=== PATIENT | male | born 1960 | race Caucasian/White ===

== ENCOUNTER → 2021-01-13 | Day surgery (SDC) | payer OTHER ==
[~2021-01-13] MED LIST: AMLODIPINE BESY10 MG PO; BISOPROLOL-HCT1 EACH PO; LISINOPRIL40 MG PO; POTASSIUM CHLO20 ME1 PO; PRAVACHOL40 MG PO
[2021-01-13 08:06] LABS: HEMOGLOBIN 17.1 gm/dl (14.0-17.5); RED BLOOD COUNT 5.38 M/UL (4.20-5.50); WHITE BLOOD COUNT 7.4 K/UL (4.5-11.0)
== END | disposition home or self-care (01) ==
LOC: OR 07:38
PROVIDERS: Orthopaedic Surgery
PROC: 3E0T3BZ Introduction of Anesthetic Agent into Peripheral Nerves and Plexi, Percutaneous Approach (ICD-10-PCS; 2021-01-13)
PROC: 0LQM0ZZ Repair Left Upper Leg Tendon, Open Approach (ICD-10-PCS; principal; 2021-01-13 10:30)
DX: S76.112A Strain of left quadriceps muscle, fascia and tendon, initial encounter (principal); G89.18 Other acute postprocedural pain; I10 Essential (primary) hypertension; E78.5 Hyperlipidemia, unspecified; E66.9 Obesity, unspecified; Z79.899 Other long term (current) drug therapy; X50.9XXA Other and unspecified overexertion or strenuous movements or postures, initial encounter
CPT/HCPCS: 36415; 71045; 80048; 85025; 93005; J0690; J1885; J2001; J2250; J2405; J2704; J3010; J7120